=== PATIENT | male | born 1985 ===

== ENCOUNTER 2019-01-04 22:35 | Emergency (ER) | payer OTHER ==
[2019-01-04 22:47] VITALS: BP 124/73
[2019-01-04 23:37] LABS: Blood Urea Nitrogen 12 mg/dL (9-20); Calcium 8.5 mg/dL (8.4-10.2); Hemolysis Index 12
[2019-01-04 23:48] LABS: Hematocrit 37.3 % (35.5-45.6); Hemoglobin 13.3 gm/dl (11.8-15.2); Mean Corpuscular HGB Conc 36 % (32-34); Mean Corpuscular Volume 91 fl (84-94); Platelet Count 418 K/mm3 (140-440)
[2019-01-05 00:19] LABS: BUN/Creatinine Ratio 20
[2019-01-05 03:57] LABS: Band Neutrophils # (Manual) 0.1 K/mm3; Basophils % (Manual) 0 % (0.0-1.8); Total Cells Counted 100
[2019-01-05 03:58] LABS: Anisocytosis 1+
== END 2019-01-05 00:12 | disposition left against medical advice (07) ==
LOC: ED 22:35
DX: F10.120 Alcohol abuse with intoxication, uncomplicated (principal); Z53.21 Procedure and treatment not carried out due to patient leaving prior to being seen by health care provider
CPT/HCPCS: 36415; 80048; 85007; 85025; G0480; 80320